=== PATIENT | female | born 1975 | race Caucasian/White ===

== ENCOUNTER 2019-02-24 11:08 | Emergency (ER) | payer BC ==
[~2019-02-24] VITALS: Ht 167.6 cm; Wt 84.1 kg
[~2019-02-24 11:08] MED LIST: ACETAMINOPHEN W1 TA6 PO; CIPRO 500MG TA500 MG PO; LISINOPRIL10 MG PO
[2019-02-24 11:13] VITALS: TEMP 98.3
[2019-02-24 11:39] LABS: COLLECTION METHOD CLEAN CATCH
[2019-02-24 11:46] LABS: BASO % 0.4 % (0.0-2.0); EOS # 0.1 (0.0-0.7); EOS % 1.3 % (0-4.0); GRAN # 5.3 (1.4-6.5); GRAN % 64.6 % (42.2-75.2); HEMOGLOBIN 14.8 g/dl (12.5-16.0); LYMPH # 2.2 (1.2-3.4); LYMPH % 26.6 % (20.0-51.0); MEAN CELL VOLUME 94 fl (80.0-100.0); MEAN CORPUSCULAR HEMOGLOBIN 33 pg (27.0-31.0); MEAN CORPUSCULAR HGB CONC 35 g/dl (33.0-37.0); MEAN PLATELET VOLUME 9.6 fl (7.4-10.4); MONO # 0.5 (0.1-0.6); MONO % 6.2 % (1.7-9.3); MUCOUS Present /lpf; PH 8 (5-8); PLATELET COUNT 215 K/mm3 (130-400); RED BLOOD COUNT 4.46 M/mm3 (4.10-5.30); REDCELL DISTRIBUTION WIDTH-CV 12.5 % (11.5-14.5); SQUAMOUS EPITHELIAL 0-2 /hpf; URINE APPEARANCE Clear; URINE BACTERIA None Seen /hpf; URINE BILIRUBIN Negative (NEGATIVE); URINE BLOOD Negative (NEGATIVE); URINE COLOR Straw; URINE GLUCOSE Negative (NEGATIVE); URINE KETONE Negative (NEGATIVE); URINE LEUKOCYTE ESTERASE Negative (NEGATIVE); URINE NITRATE Negative (NEGATIVE); URINE PROTEIN(semi-quant) Negative (NEGATIVE); URINE RBC 0-2 /hpf; URINE UROBILINOGEN Negative (NEGATIVE)
[2019-02-24 11:50] LABS: INR 0.9 (0.8-3.0)
[2019-02-24 11:52] LABS: PARTIAL THROMBOPLASTIN TIME 34.4 SECONDS (26.0-37.0)
[2019-02-24 11:54] LABS: ALANINE AMINOTRANSFERASE 8 U/L (9-52); ALBUMIN 3.7 gm/dL (3.5-5.0); ALKALINE PHOSPHATASE 43 U/L (50-136); ANION GAP 10 mmol/L (7-16); AST,SGOT 20 U/L (15-37); BILIRUBIN,TOTAL 0.3 mg/dL (0.0-1.0); BLOOD UREA NITROGEN 10 mg/dL (7-17); CALCIUM 8.9 mg/dL (8.4-10.2); CARBON DIOXIDE 25 mmol/L (22-30); CHLORIDE 106 mmol/L (98-107); CREATININE, serum 0.66 (0.52-1.25); GLUCOSE 135 mg/dL (74-106); POTASSIUM 3.6 mmol/L (3.4-5.0); SODIUM 141 mmol/L (137-145); TOTAL PROTEIN 6.4 gm/dL (6.4-8.2)
[2019-02-24 12:15] LABS: TROPONIN-I < 0.012 ng/mL (0.000-0.035)
[2019-02-24 12:55] VITALS: BP 110/79; PULSE 70
== END 2019-02-24 12:55 | disposition home or self-care (01) ==
LOC: COL.ER 11:08
PROVIDERS: Family Medicine
DX: R07.89 Other chest pain (principal); F17.210 Nicotine dependence, cigarettes, uncomplicated

== ENCOUNTER → 2020-07-05 | Outpatient (CLI) | payer BC | LOC: COL.RAD 07:05 | DX: R19.09 Other intra-abdominal and pelvic swelling, mass and lump (principal) | CPT/HCPCS: Q9967 ==